=== PATIENT | female | born 1960 | race Caucasian/White ===

== ENCOUNTER → 2017-05-09 | Outpatient (CLI) | payer OTHER | LOC: FIMAGING 16:09 | PROVIDERS: ATTEND Internal Medicine Hematology & Oncology | DX: Z09 Encounter for follow-up examination after completed treatment for conditions other than malignant neoplasm (principal); Z85.72 Personal history of non-Hodgkin lymphomas ==

== ENCOUNTER → 2017-10-22 | Outpatient (CLI) | payer OTHER | LOC: FIMAGING 07:42 | PROVIDERS: ATTEND Obstetrics & Gynecology | DX: Z12.31 Encounter for screening mammogram for malignant neoplasm of breast (principal); Z80.3 Family history of malignant neoplasm of breast | CPT/HCPCS: G0202 ==

== ENCOUNTER 2017-12-22 11:53 | Emergency (ER) | payer OTHER ==
[2017-12-22 12:14] VITALS: RESP 18; O2SAT 95
--- NOTE | 2017-12-22 12:23 | EDPHY ---
H & P Stated Complaint: LT KNEE PAIN Time Seen by Provider: 12/22/17 12:01 HPI/ROS: CHIEF COMPLAINT: Knee pain HISTORY OF PRESENT ILLNESS: This is a 57-year-old female who has had 3 days of left lateral lower thigh and knee pain. The pain became abruptly worse today, while she was walking her dog. She felt a pop and has been unable to bear weight since. She feels as if her leg will giveaway. There was no trauma. She did not have a twisting injury. She does not have back pain. She denies numbness. No bowel or bladder complaints. No fever. REVIEW OF SYSTEMS: A ten point review of systems was performed and is negative with the exception of the items mentioned in the HPI. Past medical history: Lymphoma Past surgical history: Lung resection for diagnosis of lymphoma Social history: She is . She works from home. She does not use tobacco products. General Appearance: Alert. Vital signs reviewed. Neck: Nontender over the cervical spine. Respiratory: Lungs are clear to auscultation; no wheezes, rales, or rhonchi. Cardiovascular: Regular rate and rhythm; no murmur, rub, or gallop. Gastrointestinal: Abdomen is soft and nontender. Skin: Warm and dry, no rashes on exposed skin, normal color--no erythema. Back: Nontender to palpation over the thoracolumbar spine. Extremities: No tenderness with palpation of the left knee. No palpable effusion. Full active and passive range of motion of the left knee. No appreciable instability. She is able to raise her left leg off the bed without difficulty into maintain this position with the knee fully straightened. No lower extremity edema, no calf tenderness or swelling. Pulses: Left dorsalis pedis pulse 2 +. 5/5 strength in left lower extremity with testing of major motor groups. Neurological: Alert and oriented. Moving all four extremities easily and equally. Sensation is intact to light touch over both lower extremities. Psychiatric: Normal affect. - Personal History Current Tetanus Diphtheria and Acellular Pertussis (TDAP): Yes - Medical/Surgical History Hx Asthma: No Hx Chronic Respiratory Disease: No Hx Diabetes: No Hx Cardiac Disease: No Hx Renal Disease: No Hx Cirrhosis: No Hx Alcoholism: No Hx HIV/AIDS: No Hx Splenectomy or Spleen Trauma: No Other PMH: TOM BUNION SURGERY. RT MID LOBE BIOPSY WITH REMOVAL. MALT LYMPHOMA. TONSILS. C-SEC - Social History Smoking Status: Never smoked Constitutional: Initial Vital Signs Temperature (C) 38 C 12/22/17 12:11 Heart Rate 76 12/22/17 12:11 Respiratory Rate 18 12/22/17 12:11 Blood Pressure 142/98 H 12/22/17 12:11 O2 Sat (%) 95 12/22/17 12:11 O2 Delivery Mode Room Air Allergies/Adverse Reactions: prochlorperazine edisylate [From Compazine] Allergy (Verified 12/22/17 12:09) prochlorperazine maleate [From Compazine] Allergy (Verified 12/22/17 12:09) Home Medications: Medication Instructions Recorded Calcium Carb/Vit D3/Minerals 1 - 2 each PO DAILY 06/10/14 [Calcium 1,200 mg Tablet Chew] Ubidecarenone/Vit E Acet [Co Q-10 3 - 6 each PO DAILY 06/10/14 100 mg Softgel] Medical Decision Making - Diagnostics Imaging Results: Imaging Impressions Knee X-Ray 12/22/17 12:20 Impression: Normal except for early minimal osteoarthritis. No fracture or effusion. ED Course/Re-evaluation: 57-year-old female with left lateral knee and distal thigh pain. No trauma. She did hear/feel a "pop" while walking today and has been unable to comfortably bear weight since then because of a giveaway sensation in her left leg. Exam is essentially normal. X-ray is normal--no fracture, no dislocation , no effusion. I do not suspect DVT. She has no calf tenderness or swelling. There is no pain behind her left knee a Manley's cyst seems unlikely. She had some pain a few days ago, prior to today's exacerbation, and lumbar radiculopathy is a possibility. She has no numbness and no demonstrable weakness on individual motor testing. She has no back pain. She does not have signs of a quadriceps rupture--she is able to fully extend her knee, there is no pain on exam, no swelling, no bruising, and no supra patellar indentation. Treating her for a knee sprain. She is placed in a neoprene knee brace and given crutches. She is given advice about icing and elevating. She is given orthopedic follow-up. She is aware that her blood pressure was elevated when she was initially evaluated. 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 Departure - Departure Disposition: Home, Routine, Self-Care Clinical Impression: Left knee sprain Qualifiers: Encounter type: initial encounter Involved ligament of knee: unspecified ligament Qualified Code(s): S83.92XA - Sprain of unspecified site of left knee, initial encounter Condition: Good Instructions: Knee Sprain (ED), Crutch Instructions (ED), R.I.C.E. Treatment ( ED) Additional Instructions: Adult Pain & Fever Control: We recommend Acetaminophen (Tylenol) and Ibuprofen (Motrin,Advil) for pain and fever control. When fever is high or pain severe, both drugs can be used at the same time, but at different intervals. Please note the time differences. Your dose is: Acetaminophen 650mg every 4 to 6 hours Ibuprofen 400mg every 6 hours with food OR Note: do not take Acetaminophen with Hydrocodone (Vicodin, Lortab) or Oycodone (Percocet). These medications also contain Acetaminophen. No more than 3000mg of Acetaminophen should be taken in 24 hours (for an adult). If you are not getting better I recommend following up with Dr. Escamilla, orthopedist. Use the brace for comfort. Try walking without it every day to see how you do. If you develop new or concerning symptoms--back pain, new weakness, worsening pain--return for a re-evaluation. Referrals: Wesly Escamilla MD [Medical Doctor] - As per Instructions
[2017-12-22 13:24] VITALS: BP 136/87; PULSE 80; TEMP 97.9
== END 2017-12-22 13:17 | disposition home or self-care (01) ==
LOC: CED 11:53
DX: S83.92XA Sprain of unspecified site of left knee, initial encounter (principal); X58.XXXA Exposure to other specified factors, initial encounter; Y99.8 Other external cause status; Y93.01 Activity, walking, marching and hiking
CPT/HCPCS: 73562-PO

== ENCOUNTER → 2018-05-03 | Outpatient (CLI) | payer OTHER | LOC: FIMAGING 08:19 | PROVIDERS: ATTEND Internal Medicine Hematology & Oncology | DX: Z12.9 Encounter for screening for malignant neoplasm, site unspecified (principal); Z85.72 Personal history of non-Hodgkin lymphomas ==

== ENCOUNTER → 2018-08-23 | Outpatient (CLI) | payer OTHER | LOC: FIMAGING 08:33 | PROVIDERS: ATTEND Family Medicine | DX: Z13.820 Encounter for screening for osteoporosis (principal); M85.89 Other specified disorders of bone density and structure, multiple sites; Z78.0 Asymptomatic menopausal state ==

== ENCOUNTER → 2018-10-23 | Outpatient (CLI) | payer OTHER | LOC: FIMAGING 07:39 | PROVIDERS: ATTEND Family Medicine | DX: Z12.31 Encounter for screening mammogram for malignant neoplasm of breast (principal); Z85.72 Personal history of non-Hodgkin lymphomas ==